=== PATIENT | female | born 1970 | race Caucasian/White ===

== ENCOUNTER 2018-09-13 06:00 | Day surgery (SDC) | payer BC ==
[~2018-09-13] VITALS: Ht 160 cm; Wt 75.7 kg
[2018-09-13] MEDS ORDERED: CEFAZOLIN 1 GM IVPB PREMIX 50 ML IV ONE (07:00)
[2018-09-13] MEDS ORDERED: fentaNYL CITRATE/PF 100 MCG/2 ML AMP IVP PRN ×2 (08:30)
[2018-09-13] MEDS ORDERED: ONDANSETRON HCL 4 MG/2 ML VIAL IVP PRN ×2 (08:30→09:45)
[2018-09-13] MEDS ORDERED: KETOROLAC TROMETHAMINE 30 MG VIAL IVP PRN (08:30)
[2018-09-13] MEDS ORDERED: HYDROcodone/ACETAMIN 5-325 MG TAB (NORCO/ VICODIN) PO PRN (09:45)
[2018-09-13] MEDS ORDERED: OXYCODONE/ACETAMINOPHEN 5-325 TABLET PO PRN ×2 (09:45)
[2018-09-13] MEDS ORDERED: ONDANSETRON HCL 4 MG/2 ML VIAL ONE (10:10)
[2018-09-13] MEDS ORDERED: LR 1,000 ML IV.SOLN IV ONE (10:10)
[2018-09-13] MEDS ORDERED: DEXTROSE 50% JECT 50 ML DISP.SYRIN ONE (10:10)
[2018-09-13] MEDS ORDERED: NS 1000 ML IV.SOLN IV ONE (10:10)
[2018-09-13] MEDS ORDERED: ROCURONIUM BROMIDE 10 MG/ML (ZEMURON) ONE (10:10)
[2018-09-13] MEDS ORDERED: fentaNYL CITRATE/PF 100 MCG/2 ML AMP ONE (10:10)
[2018-09-13] MEDS ORDERED: SEVOFLURANE 15 MIN GAS INH ONE (10:10)
[2018-09-13] MEDS ORDERED: GLYCOPYRROLATE 0.2 MG/ML VIAL ONE (10:10)
[2018-09-13] MEDS ORDERED: PROPOFOL 200MG/ 20ML VIAL (DIPRIVAN) IV ONE (10:10)
[2018-09-13] MEDS ORDERED: NEOSTIGMINE METHYLSULFATE 1 MG/ML, 10 ML VIAL ONE (10:10)
[2018-09-13] MEDS ORDERED: NS IRRIG SOLN 1000 ML IR ONE (10:10)
[2018-09-13] MEDS ORDERED: [UNRECOGNIZED DRUG - OTHER] INJ ONE (10:10)
[2018-09-13] MEDS ORDERED: KETOROLAC TROMETHAMINE 30 MG VIAL ONE (10:10)
[2018-09-13] MEDS ORDERED: MIDAZOLAM HCL 5 MG/ML VIAL (VERSED) IV ONE (10:10)
[2018-09-13] MEDS ORDERED: BUPIVACAINE /PF 0.5% 30 ML VIAL ONE (10:10)
[2018-09-13] MEDS ORDERED: ROPIVACAINE 0.2% (NAROPIN) PF SOLUTION 100 ML BOTTLE ONE (10:10)
[2018-09-13] MEDS ORDERED: FUROSEMIDE 20 MG/2 ML VIAL ONE (10:10)
[2018-09-13] MEDS ORDERED: HYDROcodone/ACETAMIN 5-325 MG TAB (NORCO/ VICODIN) ONE (11:55)
[2018-09-13] MEDS ORDERED: KETOROLAC TROMETHAMINE 30 MG VIAL IVP ONE (12:30)
[2018-09-13] MEDS ORDERED: SIMETHICONE 80 MG TAB.CHEW PO SCH (13:00)
[2018-09-13 16:15] VITALS: BP_SYST 132
== END 2018-09-13 13:38 | disposition home or self-care (01) ==
LOC: SMU 06:00 → SDS 06:00
PROVIDERS: ATTEND Family Medicine
DX: D25.1 Intramural leiomyoma of uterus (principal); D25.0 Submucous leiomyoma of uterus; D25.2 Subserosal leiomyoma of uterus; N72 Inflammatory disease of cervix uteri; N83.8 Other noninflammatory disorders of ovary, fallopian tube and broad ligament; N85.2 Hypertrophy of uterus; N83.202 Unspecified ovarian cyst, left side; K58.9 Irritable bowel syndrome, unspecified; Z79.899 Other long term (current) drug therapy; Z98.890 Other specified postprocedural states
CPT/HCPCS: 49322; 58552; 88307; C1727; J0690; J1885; J1940; J2250; J2405; J2704; J2710; J2795; J3010; J3490 ×2; J7030; J7120; E0190